=== PATIENT | male | born 1945 | race Two or more races ===

== ENCOUNTER 2022-08-26 13:23 | Inpatient (IN) | payer MEDICARE, OTHER ==
[~2022-08-26] VITALS: Ht 185.4 cm; Wt 74.4 kg
--- NOTE | 2022-08-26 13:42 | NUR ---
BLOOD SAMPLES OBTAINED
--- NOTE | 2022-08-26 13:49 | NUR ---
MOVE SHEET SUBMITTED.
[2022-08-26 13:53] LABS: BASOPHILS # (AUTO) 0.1 K/uL (0.0-0.2); BASOPHILS % (AUTO) 0.7 % (0.0-2.0); EOSINOPHILS % (AUTO) 2.1 % (0.0-6.0); HEMATOCRIT 34 % (39-51); HEMOGLOBIN 11.5 g/dL (13.5-17.5); LYMPHOCYTES # (AUTO) 4.3 K/uL (0.8-4.8); LYMPHOCYTES % (AUTO) 55.8 % (20.0-44.0); MEAN CORPUSCULAR HGB CONC 34 g/dl (31.0-36.0); MEAN CORPUSCULAR VOLUME 94 fL (80-96); MONOCYTES # (AUTO) 0.8 K/uL (0.1-1.30); MONOCYTES % (AUTO) 10.9 % (2.0-12.0); NEUTROPHILS # (AUTO) 2.3 K/uL (1.8-8.9); NEUTROPHILS % (AUTO) 30.5 % (43.0-81.0); PLATELET COUNT (AUTO) 202 K/uL (150-450); WHITE BLOOD COUNT (AUTO) 7.7 K/uL (4.3-11.0)
--- NOTE | 2022-08-26 13:58 | NUR ---
URINE SPECIMEN SENT TO LAB ORDERED.
--- NOTE | 2022-08-26 13:59 | NUR ---
[facility] 102 FOR ALTERED MENTAL STATUS S/P FINISHING DIALYSIS.
[2022-08-26 14:04] LABS: SERUM AMMONIA 22 umol/L (11-32)
[2022-08-26 14:10] LABS: ALANINE AMINOTRANSFERASE 17 U/L (12-78); ALBUMIN 3.5 g/dL (3.4-5.0); ALKALINE PHOSPHATASE 92 U/L (46-116); ASPARTATE AMINOTRANSFERASE 18 U/L (15-37); BILIRUBIN,DIRECT 0.3 mg/dL (0.0-0.2); BILIRUBIN,TOTAL 0.8 mg/dL (0.2-1.0); CALCIUM, SERUM 9.5 mg/dL (8.5-10.1); CARBON DIOXIDE 32 mmol/L (21-32); CHLORIDE 96 mmol/L (98-107); CREATININE 4.5 mg/dL (0.6-1.3); GLUCOSE 96 mg/dL (74-106); POTASSIUM 3.7 mmol/L (3.5-5.1); SODIUM SERUM 139 mmol/L (136-145); TOTAL PROTEIN, SERUM 7.5 g/dL (6.4-8.2); UREA NITROGEN, BLOOD 24 mg/dL (7-18)
--- NOTE | 2022-08-26 14:13 | NUR ---
COVID SWAB OBTAINED
[2022-08-26 14:17] LABS: THYROID STIMULATING HORMONE 1.562 uIU/mL (0.358-3.74)
[2022-08-26 14:26] LABS: ACETAMINOPHEN < 10 ug/ml (10-30); ALCOHOL, BLOOD < 3 mg/dL (0-0)
[2022-08-26 14:29] LABS: BILIRUBIN,URINE NEGATIVE (NEGATIVE); COLOR,URINE YELLOW (YELLOW); LEUKOCYTE ESTERASE ,URINE NEGATIVE (NEGATIVE); NITRITE, URINE NEGATIVE (NEGATIVE); PH,URINE 8.5 (5.0-8.0); PROTEIN,URINE 2+ mg/dl (NEGATIVE); UGLUCOSE NEGATIVE (NEGATIVE); UROBILINOGEN,URINE 0.2 EU/dL (0.2)
[2022-08-26] MEDS ORDERED: SENN-261 PO (14:33)
[2022-08-26] MEDS ORDERED: AZEL137S7 (14:33)
[2022-08-26] MEDS ORDERED: CLOP75TA15 PO (14:33)
[2022-08-26] MEDS ORDERED: ESOM40CA52 PO (14:33)
[2022-08-26] MEDS ORDERED: TAMS-12 PO (14:33)
[2022-08-26] MEDS ORDERED: AMLO-212 PO (14:33)
[2022-08-26] MEDS ORDERED: NITR0.4T48 SL (14:33)
[2022-08-26] MEDS ORDERED: POLY17PO4 PO (14:33)
[2022-08-26] MEDS ORDERED: MECL-182 PO (14:33)
[2022-08-26] MEDS ORDERED: ATOR40TA PO (14:33)
[2022-08-26] MEDS ORDERED: OXCA600T8 PO (14:33)
[2022-08-26] MEDS ORDERED: ERGO500093 PO (14:33)
[2022-08-26] MEDS ORDERED: ALBU8.5H8 IH (14:33)
[2022-08-26] MEDS ORDERED: VENL75CA62 PO (14:33)
[2022-08-26] MEDS ORDERED: SEVE800T28 PO (14:33)
[2022-08-26] MEDS ORDERED: SERT50TA12 PO (14:33)
[2022-08-26] MEDS ORDERED: ASPI-1169 PO (14:33)
--- NOTE | 2022-08-26 14:39 | NUR ---
DR. SHERIDAN SPEAKING WITH DR. HINES.
[2022-08-26] MEDS ORDERED: PIPERACILLIN /TAZOBACTAM 3.375 G VIAL IV ONE (14:57)
[2022-08-26] MEDS ORDERED: VANCOMYCIN 1 GM VIAL ONE (14:58)
[2022-08-26] MEDS ORDERED: VANCOMYCIN 1 GM in IV D5W 250 ML IV ONE (15:00)
[2022-08-26] MEDS ORDERED: PIPERACILLIN /TAZOBACTAM 3.375 G in IV D5W 50 ML IV ONE (15:00)
[2022-08-26 15:07] LABS: BACTERIA,URINE Few /HPF (None Seen); RBC,URINE 0-2 /HPF (0-2); WBC,URINE NONE SEEN /HPF (0-3)
--- NOTE | 2022-08-26 15:07 | NUR ---
room 118-1 , admitting informed
[2022-08-26 15:08] LABS: SQUAMOUS EPITHELIAL CELL,UR Few /HPF (None Seen)
--- NOTE | 2022-08-26 15:38 | NUR ---
Report given to supervisor in charge in [facility]
--- NOTE | 2022-08-26 15:40 | NUR ---
Patient transferred to [facility]-, all care endorsed to RN
--- NOTE | 2022-08-26 15:45 | NUR ---
ADMISSION RN NOT RECEIVED PT FROM ER, TRANSFERRED VIA GURNEY. PT CONFUSED, UNABLE TO PROVIDE ANY INFORMATION. ADMITTED DUE TO ALTERED MENTAL STATUS FROM [facility] AFTER LAST SESSION, ADM. DX HEMODIALYSIS DISEQUILIBRIUM SYNDROME. PT IS FROM HOME, SKIN INTACT, IV ACCESS RIGHT FOREARM, FLUSHES WELL. ON RA, SATURATION 98%, NO SOB. SAFETY MEASURES IMPLEMENTED, BED LOCKED AND IN LOWEST POSITION. WILL CONTINUE TO MONITOR.
[2022-08-26] MEDS ORDERED: ACETAMINOPHEN 325 MG TABLET PO PRN (16:00)
[2022-08-26] MEDS ORDERED: ERGOCALCIFEROL (VITAMIN D 2) 50,000 UNIT CAPSULE PO SCH (16:00)
[2022-08-26] MEDS ORDERED: Z GUARD REMEDY 4 OZ OINT TP PRN (16:00)
[2022-08-26] MEDS ORDERED: ONDANSETRON HCL/PF 4 MG/2 ML VIAL IVP PRN (16:00)
[2022-08-26] MEDS ORDERED: ALBUTEROL FS 2.5 MG/3 ML VIAL.NEB NEB PRN (16:30)
[2022-08-26] MEDS: AZELASTINE NASAL SPRAY 30 ML BOTTLE NS SCH (17:38)
[2022-08-26] MEDS: OXCARBAZEPINE 150 MG TABLET PO SCH (17:48)
[2022-08-26] MEDS: SEVELAMER CARBONATE 800 MG TABLET PO SCH (17:48)
[2022-08-26] MEDS: SENNOSIDES 8.6 MG TABLET PO SCH (17:49)
--- NOTE | 2022-08-26 19:14 | NUR ---
RN CLOSING NOTE WAS ABLE TO COLLECT SOME INITIAL ASSESSMENT INFORMATION FROM FAMILY MEMBER. PT IS SLEEPING, NO SOB, VS: BP 121/65; HR 63; TEMP97.[address], BED LOCKED, CALL LIGHT WITHIN REACH. 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
--- NOTE | 2022-08-26 19:30 | NUR ---
MS RN OPENING NOTES - RECEIVED PATIENT RESTING, HOB IN SEMI-NEAL'S. A/O X0, [place] SPEAKING. BREATHING EVEN AND NON-LABORED ON ROOM AIR. NOT IN APPARENT DISTRESS. NO S/S OF PAIN OR DISCOMFORT AT THIS TIME. HAS RIGHT FOREARM IV ACCESS #20G AND SALINE LOCKED. NO S/S OF INFILTRATION NOTED. HAS RIGHT CHEST WALL PERMA CATH, DRESSING DRY AND INTACT. SAFETY PRECAUTIONS IN PLACE: BED LOCKED AND IN LOW POSITION, SIDE RAILS UP X2, CALL LIGHT WITHIN REACH. WILL CONTINUE PLAN OF CARE.
[2022-08-26 20:00] VITALS: BP 161/79
[2022-08-26 21:02] VITALS: BP 160/86
--- NOTE | 2022-08-26 21:10 | NUR ---
NOTIFIED DR. PIERCE THAT BP ARE HIGH: 161/79 AND 160/86. ORDERED CLONIDINE 0.1MG Q6H PRN FOR SBP >150. NOTED AND CARRIED OUT.
[2022-08-26] MEDS ORDERED: CLONIDINE HCL 0.1 MG TABLET PO PRN (21:30)
[2022-08-26] MEDS: HEPARIN SODIUM, PORCINE 5000 UNITS/1 ML VIAL SQ SCH (21:43)
[2022-08-26] MEDS ORDERED: ATORVASTATIN 40 MG TABLET PO SCH (22:00)
[2022-08-27] VITALS: BP 135/63
[2022-08-27 04:00] VITALS: BP 136/73
[2022-08-27 06:03] LABS: BASOPHILS % (AUTO) 0.5 % (0.0-2.0); EOSINOPHILS % (AUTO) 9.6 % (0.0-6.0); HEMATOCRIT 30 % (39-51); LYMPHOCYTES # (AUTO) 2.1 K/uL (0.8-4.8); MEAN CORPUSCULAR HGB CONC 34 g/dl (31.0-36.0); MEAN CORPUSCULAR VOLUME 94 fL (80-96); MONOCYTES # (AUTO) 0.8 K/uL (0.1-1.30); MONOCYTES % (AUTO) 13.1 % (2.0-12.0); NEUTROPHILS # (AUTO) 2.5 K/uL (1.8-8.9); NEUTROPHILS % (AUTO) 41.8 % (43.0-81.0); PLATELET COUNT (AUTO) 164 K/uL (150-450); RED BLOOD CELL COUNT(AUTO) 3.13 MIL/uL (4.5-6.0); WHITE BLOOD COUNT (AUTO) 5.9 K/uL (4.3-11.0)
[2022-08-27 06:22] LABS: CALCIUM, SERUM 9.1 mg/dL (8.5-10.1); CARBON DIOXIDE 33 mmol/L (21-32); CHLORIDE 95 mmol/L (98-107); CREATININE 6.4 mg/dL (0.6-1.3); GLUCOSE 107 mg/dL (74-106); PHOSPHORUS 5.2 mg/dL (2.5-4.9); POTASSIUM 4.1 mmol/L (3.5-5.1); SODIUM SERUM 136 mmol/L (136-145); UREA NITROGEN, BLOOD 32 mg/dL (7-18)
[2022-08-27 06:26] LABS: CHOLESTEROL 240 mg/dL (<200); HDL CHOLESTEROL 57 mg/dL (40-60); LDL 154 mg/dL (0-99); TRIGLYCERIDES 126 mg/dL (30-150)
--- NOTE | 2022-08-27 07:21 | NUR ---
MS RN CLOSING NOTES - PATIENT LAYING IN BED, ABLE TO VERBALIZE NEEDS. MORE ALERT NOW. ORIENTED TO NAME, PLACE AND TIME. CAN SPEAK SOME [place]. NO ACUTE DISTRESS THROUGHOUT THE NIGHT. NO SOB OR NOTED. NO C/O PAIN AT THIS TIME. AFEBRILE. RIGHT FOREARM IV ACCESS INTACT, PATENT AND FLUSHING. RIGHT CHEST WALL PERMA CATH DRESSING C/D/I. ALL DUE MEDS GIVEN AND NEEDS ATTENDED. SAFETY PRECAUTIONS MAINTAINED. WILL ENDORSE TO NEXT SHIFT FOR [employer].
[2022-08-27] MEDS: SEVELAMER CARBONATE 800 MG TABLET PO SCH ×2 (07:25→08:48)
[2022-08-27] MEDS ORDERED: PANTOPRAZOLE 40 MG TABLET.DR PO SCH (07:30)
--- NOTE | 2022-08-27 07:30 | NUR ---
RECEIVED PATIENT RESTING, HOB IN SEMI-NEAL'S. A/O X0, ESTONIAN SPEAKING. BREATHING EVEN AND NON-LABORED ON ROOM AIR. NOT IN APPARENT DISTRESS. NO S/S OF PAIN OR DISCOMFORT AT THIS TIME. HAS RIGHT FOREARM IV ACCESS #20G AND SALINE LOCKED. NO S/S OF INFILTRATION NOTED. HAS RIGHT CHEST WALL PERMA CATH, DRESSING DRY AND INTACT. SAFETY PRECAUTIONS IN PLACE: BED LOCKED AND IN LOW POSITION, SIDE RAILS UP X2, CALL LIGHT WITHIN REACH. WILL CONTINUE PLAN OF CARE.
[2022-08-27] MEDS: SENNOSIDES 8.6 MG TABLET PO SCH (08:55)
[2022-08-27] MEDS: AZELASTINE NASAL SPRAY 30 ML BOTTLE NS SCH (08:55)
[2022-08-27 08:56] VITALS: BP 136/73
[2022-08-27] MEDS: OXCARBAZEPINE 150 MG TABLET PO SCH (08:56)
[2022-08-27] MEDS: HEPARIN SODIUM, PORCINE 5000 UNITS/1 ML VIAL SQ SCH (08:57)
[2022-08-27] MEDS ORDERED: AMLODIPINE BESYLATE 5 MG TABLET PO SCH (09:00)
[2022-08-27] MEDS ORDERED: CLOPIDOGREL BISULFATE 75 MG TABLET PO SCH (09:00)
[2022-08-27] MEDS ORDERED: ASPIRIN 81 MG TAB.CHEW PO SCH (09:00)
[2022-08-27] MEDS ORDERED: SERTRALINE HCL 50 MG TABLET PO SCH (09:00)
[2022-08-27] MEDS ORDERED: TAMSULOSIN 0.4 MG CAP.SR.24H PO SCH (09:00)
--- NOTE | 2022-08-27 14:00 | NUR ---
PATIENT WAS DISCHARGE TO HOME WITH THE , PATIENT IS IN STABLE CONDITION.
== END 2022-08-27 13:57 | disposition home or self-care (01) | DRG 640 ==
LOC: ER 13:29 → TELE1 15:11 → MEDSG1 20:11
PROVIDERS: ADMIT Nurse Practitioner Acute Care; ATTEND Nurse Practitioner Acute Care
DX: E87.8 Other disorders of electrolyte and fluid balance, not elsewhere classified (principal); G93.41 Metabolic encephalopathy; N18.6 End stage renal disease; I12.0 Hypertensive chronic kidney disease with stage 5 chronic kidney disease or end stage renal disease; Z99.2 Dependence on renal dialysis; Z20.822 Contact with and (suspected) exposure to COVID-19; Z85.038 Personal history of other malignant neoplasm of large intestine; Z92.21 Personal history of antineoplastic chemotherapy; Z95.5 Presence of coronary angioplasty implant and graft; Z87.891 Personal history of nicotine dependence; Z86.73 Personal history of transient ischemic attack (TIA), and cerebral infarction without residual deficits; G40.909 Epilepsy, unspecified, not intractable, without status epilepticus; Z79.82 Long term (current) use of aspirin; Z79.51 Long term (current) use of inhaled steroids; Z79.02 Long term (current) use of antithrombotics/antiplatelets; Z79.899 Other long term (current) drug therapy; D64.9 Anemia, unspecified; E87.20 Acidosis, unspecified; Z98.890 Other specified postprocedural states; Z87.19 Personal history of other diseases of the digestive system; N40.0 Benign prostatic hyperplasia without lower urinary tract symptoms; E78.5 Hyperlipidemia, unspecified; E55.9 Vitamin D deficiency, unspecified; R79.89 Other specified abnormal findings of blood chemistry
CPT/HCPCS: 36415; 70450-TC; 71045-TC; 80048-TC; 80061-TC; 80076-TC; 81001; 82140-TC; 82962-TC; 83605-TC; 83735-TC; 84100-TC; 84443-TC; 84484-TC; 85025-TC; 85730-TC; 87040-TC; 87081-TC; 93307-TC; C9803; G0378; G0480; J1644; J2543; J3370; J7060